=== PATIENT | male | born 1980 | race African-American/Black ===

== ENCOUNTER 2022-02-17 23:42 | Emergency (ER) | payer SELFPAY ==
[~2022-02-17] VITALS: Ht 185.4 cm; Wt 95.3 kg
--- NOTE | 2022-02-18 00:51 | NUR ---
PT LEFT WITHOUT BEING SEEN BY DR. AKASH TOUSSAINT
== END 2022-02-18 01:02 | disposition left against medical advice (07) ==
LOC: ER 23:44
DX: Z53.21 Procedure and treatment not carried out due to patient leaving prior to being seen by health care provider (principal)